=== PATIENT | female | born 1990 | race Caucasian/White ===

== ENCOUNTER 2019-02-15 12:32 | Outpatient (CLI) | payer BC ==
--- NOTE | 2019-02-15 13:08 | RAD ---
XR Cervical Sp Com W/Obl Fl/Ex History: Cervicalgia Comparison: None. Findings: No acute fracture or malalignment. In the neutral position there is no abnormal listhesis. Normal motion with flexion and extension. No abnormal translation. Facet joints are normal. Impression: No osseous abnormality.
== END 2019-02-15 12:33 | disposition home or self-care (01) ==
LOC: BICRAD 12:32
PROVIDERS: ATTEND Internal Medicine Rheumatology
DX: M54.2 Cervicalgia (principal)
CPT/HCPCS: 72052

== ENCOUNTER 2019-12-06 15:14 | Outpatient (CLI) | payer BC ==
--- NOTE | 2019-12-06 16:36 | RAD ---
LUMBAR SPINE RADIOGRAPHS TWO VIEWS: Date: 12-06-2019 Provided Clinical History: Ankylosing spondolytic. FINDINGS: Lumbar alignment appears normal. Vertebral body heights and intervertebral disc space heights appear preserved. Laminectomy changes are seen at L4 and L5. Vascular stent material is seen involving the a ortoiliac system. The sacroiliac joints are somewhat obscured by overlying stent material inferiorly. Pedicles appear intact. No lytic or blastic lesions are seen. IMPRESSION: Post-operative change as described. POS: NAY
== END 2019-12-06 15:15 | disposition home or self-care (01) ==
LOC: BICRAD 15:14
PROVIDERS: ATTEND Internal Medicine Rheumatology
DX: M45.0 Ankylosing spondylitis of multiple sites in spine (principal); Z98.890 Other specified postprocedural states
CPT/HCPCS: 72100